=== PATIENT | male | born 1955 | race Caucasian/White ===

== ENCOUNTER 2022-02-06 06:04 | Inpatient (IN) ==
--- NOTE | 2022-01-16 12:08 | PAT Medication Instructions ---
Medication Instructions Date of Service January 16, 2022 Home Medications aspirin 81 mg capsule 81 mg PO QAM atenolol 50 mg tablet 50 mg PO QAM atorvastatin 40 mg tablet 40 mg PO QAM lorazepam 1 mg tablet 1 mg PO TID PRN ASK your prescriber and surgeon aspirin 81 mg capsule 81 mg PO QAM Take morning of surgery With a small sip of water, OTHERWISE NOTHING TO EAT OR DRINK AFTER MIDNIGHT: atenolol 50 mg tablet 50 mg PO QAM atorvastatin 40 mg tablet 40 mg PO QAM lorazepam 1 mg tablet 1 mg PO TID PRN (if needed) Take evening before surgery lorazepam 1 mg tablet 1 mg PO TID PRN (if needed) Other Notes If you have any questions please call us at [phone] or [phone] or [phone] or [phone]
--- NOTE | 2022-01-20 10:58 | Anesthesiology Consultation ---
Date of Service January 20, 2022 Assessment & Plan (1) Encounter for pre-operative examination: - Hyperkalemia: elevated potassium at 5.3 on preop labs. Will need to write note to PCP (Dr. Simone Jarrett)- pt reports preop appt scheduled 01/24. Awaiting hyperka lemia response. - COVID screening: Per assessment on 01/20: No known COVID-19 positive contacts or current COVID-19 related symptoms. Travel screen negative 2+ weeks. Patient vaccinated. Surgeon arranging preop COVID testing. Awaiting results. - ETOH use: 4 beers/day (evening) Chart Review Chart Review: Patient seen in Pre Admission Testing Teaching & Discussion Pre-Anesthesia Teaching/Discussion Notes: Instructed NPO after midnight before surgery,except medications with 15 cc of water. Medication instructions provided according to the PAT guidelines. History Surgery Operation Date: 02/06/22 07:45 Proposed Procedures p L4-S1 Decompression and Fusion, Spinal Cord Monitoring - Tripp Vargas DO Height/Weight Height: 5 ft 7 in Weight: 74 kg Allergies Allergy/AdvReac Type Severity Reaction Status Date / Time hydrocodone Allergy Mild Itchy Verified 01/20/22 10:56 Medications Home Medications Medication Instructions Recorded Confirmed Last Taken aspirin 81 mg capsule 81 mg PO QAM 01/16/22 01/16/22 Unknown atenolol 50 mg tablet 50 mg PO QAM 01/16/22 01/16/22 Unknown atorvastatin 40 mg tablet 40 mg PO QAM 01/16/22 01/16/22 Unknown lorazepam 1 mg tablet 1 mg PO TID PRN 01/16/22 01/16/22 Unknown Past Medical History Medical History (Updated 01/20/22 @ 11:14 by Sonya Reinoso) History of COVID-19 08/2021 (home test) > mild "cold" symptoms at time > resolved Hyperlipidemia Hypertension Pinched nerve LE radiation Exercise / Class Metabolic Activity II 4-5 Yardwork/Stairs/Walk up hill (one FS (no CP, no SOB)) Past Surgical History Surgical History History of arthroscopy of right shoulder History of surgery on left wrist repair of tendon Hx of arthroscopy of left knee x2 Hx of arthroscopy of right knee Hx of colonoscopy Hx of decompression of ulnar nerve right Past Anesthesia History No Hx of Anesthesia Complications and No Family Hx of Anesthesia Complications History of PONV No Hx of PONV and No Hx of Motion Sickness Social History Smoking Status: Never smoker Do You Dip or Chew Tobacco: Yes (Chew pouches - advised none DOS) Hx Alcohol Use: Yes Alcohol type: beer alcohol intake frequency: 3 or more drinks per day (4 beers/day (evening)) Hx Substance Use: No substance use type: does not use Review of Systems Patient denies chest pain, shortness of breath, dyspnea on exertion, fever, chills, cough, wheezing, palpitations. Physical Exam Vital Signs VITALS BP 149/77 P 63 TEMP 98.1 SP02 99%RA RESP 16 PHYSICAL Full cervical extension range of motion. Full TMJ range of motion. TMD 4 finger breaths Mallampati Score 2 Dentition: intact Lungs: clear throughout to auscultation Cardiac: regular rate and rhythm, no murmurs noted Spine: normal Carotid arteries: negative bruit Extremities: no edema Lab Results Anesthesia Preop Results Results Anesthesia Widget: WBC 5.90 K/uL (4.8-10.8) 01/20/22 Hgb 14.2 g/dL (14.0-18.0) 01/20/22 Hct 43.3 % (42-52) 01/20/22 Plt 302 K/uL (130-400) 01/20/22 Na 136 mmol/L (136-145) 01/20/22 K 5.3 mmol/L (3.5-5.1) H 01/20/22 Cl 102 mmol/L (98-107) 01/20/22 CO2 27 mmol/L (21-32) 01/20/22 BUN 11 mg/dl (6-23) 01/20/22 Creat 0.93 mg/dl (0.6-1.4) 01/20/22 Glucose Level 115 mg/dl (70-99(Fasting)) H 01/20/22 PT 11.4 Seconds (9.0-12.0) 01/20/22 PTT 24.3 Seconds (21.0-31.0) 01/20/22 INR 1.1 (0.9-1.1) 01/20/22 Urine Color Yellow 01/20/22 Urine Appearance Clear (Clear) 01/20/22 Urine pH 7.0 (4.5-7.5) 01/20/22 Urine Specific Leon 1.020 (1.000-1.030) 01/20/22 Urine Protein Negative (Negative) 01/20/22 Urine Glucose (UA) Negative (Negative) 01/20/22 Urine Ketones Negative (Negative) 01/20/22 Urine Blood Negative (Negative) 01/20/22 Urine Nitrite Negative (Negative) 01/20/22 Urine Bilirubin Negative (Negative) 01/20/22 Urine Urobilinogen Negative (Negative) 01/20/22 Urine Leukocyte Esterase Negative (Negative) 01/20/22 Blood Type A Positive 01/20/22 Antibody Screen NEGATIVE 01/20/22 Testing Electrocardiogram Date: 01/20/22 Findings: + SB @ (58) Chest X-Ray Date: 01/20/22 Findings: + NAD
[~2022-02-06 06:04] MED LIST: ACETAMINOPHEN 500 MG TAB PO SCH; CeleBREX 200 MG CAP PO SCH; GABAPENTIN 300 MG CAP PO SCH; LR 15ML/HR IV SCH; ceFAZolin 1000MG 1,000 MG/7.5 ML SYR IV SCH
[2022-02-06] MEDS ORDERED: MIDAZOLAM HCL 1 MG/ML 2ML VIAL ONE (07:05)
[2022-02-06] MEDS ORDERED: fentaNYL citrate 100 MCG/2 ML VIAL ONE (07:05)
[2022-02-06] MEDS ORDERED: ONDANSETRON INJ 2 MG/ML 2 ML VIAL IV PRN ×2 (07:16→11:14)
[2022-02-06] MEDS ORDERED: ePHEDrine sulfate 50 MG/ML AMP IV PRN (07:16)
[2022-02-06] MEDS ORDERED: fentaNYL citrate 100 MCG/2 ML VIAL IV PRN (07:16)
[2022-02-06] MEDS ORDERED: HYDROmorphone INJ 2 MG/ML SYR/VIAL IV PRN (07:16)
[2022-02-06] MEDS ORDERED: ATROPINE SULFATE 0.1 MG/ML 10ML SYR IV PRN (07:16)
--- NOTE | 2022-02-06 07:29 | History & Physical Bridge Note ---
Date of Service February 06, 2022 History & Physical Bridge Note I have examined the patient, reviewed the History & Physical and in the interval since the performance of the History & Physical I have noted the following changes of clinical significance: no changes noted
--- NOTE | 2022-02-06 07:29 | History & Physical Report ---
Date of Service February 06, 2022 Assessment & Plan (1) Neurogenic claudication due to lumbar spinal stenosis: Plan: L4-S1 decompression fusion History of Present Illness Chief Complaint: Back and leg pain Primary Care Provider: Simone Jarrett DO This is a 66-year-old male who presents with chronic persistent back and leg pain. After failing course of nonoperative care is here for surgical invention. Allergies Allergy/AdvReac Type Severity Reaction Status Date / Time hydrocodone Allergy Mild Itchy Verified 02/06/22 06:37 Home Medications Medication Instructions Recorded Confirmed Type aspirin 81 mg capsule 81 mg PO QAM 01/16/22 02/06/22 History atenolol 50 mg tablet 50 mg PO QAM 01/16/22 02/06/22 History atorvastatin 40 mg tablet 40 mg PO QAM 01/16/22 02/06/22 History lorazepam 1 mg tablet 1 mg PO TID PRN Anxiety 01/16/22 02/06/22 History Past Med/Surg History Medical History (Updated 02/06/22 @ 07:29 by Tripp Vargas DO) History of COVID-19 08/2021 (home test) > mild "cold" symptoms at time > resolved Hyperlipidemia Hypertension Pinched nerve LE radiation Surgical History History of arthroscopy of right shoulder History of surgery on left wrist repair of tendon Hx of arthroscopy of left knee x2 Hx of arthroscopy of right knee Hx of colonoscopy Hx of decompression of ulnar nerve right Social History Smoking Status: Never smoker Second Hand Exposure: No; Do You Dip or Chew Tobacco: Yes (Chew pouches - advised none DOS); Tobacco Cessation Education Requested by Patient: No Hx Alcohol Use: Yes Alcohol type: beer Hx Substance Use: No Preferred Language: Guyanese Communication Ability: Effective 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
[2022-02-06] MEDS ORDERED: ceFAZolin 330 MG/ML 1 GM VIAL ONE (07:38)
[2022-02-06] MEDS ORDERED: BUPIVACAINE/EPINEPHRINE 0.25% 1:200,000 30 ML VIAL ONE (07:38)
[2022-02-06] MEDS ORDERED: HYDROmorphone INJ 2 MG/ML SYR/VIAL ONE (08:07)
[2022-02-06] MEDS ORDERED: LIDOCAINE 2% MPF LOCAL 5 ML VIAL INFIL ONE (08:09)
[2022-02-06] MEDS ORDERED: DEXAMETHASONE SOD INJ 4 MG/ML VIAL ONE (08:09)
[2022-02-06] MEDS ORDERED: PHENYLEPHRINE 100MCG/ML 5ML SYR ONE (08:09)
[2022-02-06] MEDS ORDERED: GLYCOPYRROLATE 0.2 MG/ML VIAL ONE (08:09)
[2022-02-06] MEDS ORDERED: ONDANSETRON INJ 2 MG/ML 2 ML VIAL ONE (08:09)
[2022-02-06] MEDS ORDERED: ROCURONIUM BROMIDE 10 MG/ML 5 ML VIAL IV ONE (08:09)
[2022-02-06] MEDS ORDERED: LARYING-O-JET KIT (LTA) ONE (08:09)
[2022-02-06] MEDS ORDERED: NEOSTIGMINE METHYLSULFATE 1 MG/ML 10ML VIAL ONE (08:09)
[2022-02-06] MEDS ORDERED: ePHEDrine sulfate 50 MG/ML SYR ONE (08:09)
[2022-02-06] MEDS ORDERED: PROPOFOL IV EMULSION 10 MG/ML 20 ML VIAL IV ONE (08:09)
[2022-02-06] MEDS ORDERED: FLOSEAL HEMOSTATIC MATRIX 10ML TOP ONE (08:26)
--- NOTE | 2022-02-06 09:47 | Operative Report ---
Post Operative Report Pre & Post Diagnosis Operation Date: 02/06/22 07:45 Pre-Op Diagnosis: Neurogenic claudication due to lumbar spinal stenosis Post-Op Diagnosis: Neurogenic claudication due to lumbar spinal stenosis I identified the patient and participated in the time-out.: Yes Procedure Operation Date: 02/06/22 07:45 Actual Procedures Or 1 lumbar decompression bilateral medial facetectomies and foraminotomies L3- L4, L4-5 and L5-S1. #2 posterior spinal fusion L4-L5 L5-S1. #3 placement posterior instrumentation L4-L5 L5-S1. #4 interbody fusion L4-L5 L5-S1. #5 placement of Spira cage 10 x 26 mm at L4-5 and 11 x 26 mm at L5-S1. #6 placement locally harvested morselized autograft in the posterior gutters. #7 placement of I factor, V toss in the interbody space and posterior lateral gutters. Surgeon Tripp Vargas, Claims Collector Eugenia Littlejohn Estimated Blood Loss 150 Findings Consistent with Post-Op Diagnosis Specimens None Indications This is a 58-year-old male who presents above-mentioned diagnosis after failing course of nonoperative care is here for surgical invention. Description of Procedure Patient was met with identified informed consent obtained. Patient was then taken to the operative suite underwent intubation placed in a prone position the Luis Antonio table top Joaquin frame. All bony prominences well-padded eyes inspected to ensure no external pressure placed upon. This point the lumbar spine was prepped and draped in the normal sterile fashion. Sharp dissection with the assistance of Bovie cautery was performed down to and exposing the lamina and transverse processes of L4-L5 and the sacral ala bilaterally. Obvious bilateral pars defect at L5 was noted. A complete laminectomy of L5 L4 and partial laminectomy of L3 was performed. Bilateral medial facetectomies and foraminotomies addressing severe spinal stenosis. Pedicle screws then placed in L4-L5 and S1 levels bilaterally with assistance of fluoroscopy and appropriately sized jemima placed. By way of entrance foraminal approach on the right pleat discectomy of L5-S1 was performed endplates curetted to subcortical bleeding bone and 11 x 26 mm spiral cage filled with I factor tapped in position. Then proceeded to L4-L5 and again by way of a transforaminal portion right complete discectomy performed endplates curetted to subcortical any bone and a 10 x 26 mm spiral cage with I factor tapped in position. The rods then locked into final position bilaterally. The transverse processes of L4-L5 and sacral ala burred to subcortical being bone. I factor combined with V toss and locally harvested morselized autograft was placed in the posterior gutters. 15 round TAWANNA drain in serted. The incision was then closed with 1 Vicryl the fascia 2-0 Vicryl subcutaneously and 4 Monocryl for final skin closure. Steri-Strip sterile dressings placed. Patient waken taken PACU stable condition. Please note spinal cord monitoring was utilized at the procedure no changes noted. Lastly Eugenia Littlejohn was present at the entire procedure and while the patient positioning complex portions of the surgery and fascial closure. I attest to the content of the Intraoperative Record and any orders documented therein. Any exceptions are noted below.
--- NOTE | 2022-02-06 10:22 | Fluoroscopy Report ---
FL lumbar spine 2-3V CLINICAL HISTORY: L4-S1 decompression and fusion COMPARISON STUDY: None. FLUOROSCOPY TIME: 30 seconds. FINDINGS: 2 fluoroscopic spot images of the lower lumbar spine demonstrate posterior decompression an d fusion from L4 through S1 with pedicle screws and rods. Hardware is intact. Disc spacers are placed . IMPRESSION: Fluoroscopic assistance provided for L4-S1 posterior decompression and fusion. ACT 112: Negative or not required by law. Electronically signed by: Black Garland M.D. 02/06/2022 10:20 AM
--- NOTE | 2022-02-06 10:52 | Anesthesiology Progress Note ---
Date of Service February 06, 2022 Anesthesia Post Procedure Vital Signs Vital Signs: Temp Pulse Pulse Resp BP Pulse Ox O2 Del Method 02/06/22 10:45 36.4 C L 62 14 122/74 96 Nasal Cannula 02/06/22 10:35 70 13 121/79 98 Room Air 02/06/22 10:25 65 13 118/76 99 Oxymask 02/06/22 10:15 67 17 122/76 100 Oxymask 02/06/22 10:05 65 10 L 93/64 L 98 Oxymask 02/06/22 09:59 36.6 C 56 L 12 101/63 99 Oxymask 02/06/22 06:40 36.6 C 60 22 147/89 H 97 Room Air O2 Flow Rate 02/06/22 10:45 2 02/06/22 10:35 02/06/22 10:25 5 02/06/22 10:15 9 02/06/22 10:05 9 02/06/22 09:59 9 02/06/22 06:40 Pain Intensity Back: Pain Intensity: 5 Transfer of Care Handoff Completed per policy Notes Mental Status: alert / awake / arousable and participated in evaluation Patient Amnestic to Procedure: Yes Nausea / Vomiting: adequately controlled Pain: adequately controlled Airway Patency, RR, SpO2: stable & adequate BP & HR: stable & adequate Hydration State: stable & adequate Anesthetic Complications: no major complications apparent and Pt Satisfied with anesthetic care
[2022-02-06] MEDS ORDERED: ONDANSETRON 4 MG OD TAB PO PRN (11:14)
[2022-02-06] MEDS ORDERED: bisacodyL 10 MG SUPP PR PRN (11:14)
[2022-02-06] MEDS ORDERED: PROMETHAZINE HCL 12.5 MG in SODIUM CHLORIDE 0.9% 50 ML IV PRN (11:14)
[2022-02-06] MEDS ORDERED: METOCLOPRAMIDE HCL INJ 5 MG/ML 2 ML VIAL IV PRN (11:14)
[2022-02-06] MEDS ORDERED: ACETAMINOPHEN 1,000 MG/100 ML VIAL IV PRN (11:14)
[2022-02-06] MEDS ORDERED: LORazepam 0.5 MG TAB PO PRN (11:14)
[2022-02-06] MEDS ORDERED: NALOXONE HCL 0.4 MG/1 ML VIAL/CARP IV PRN (11:14)
[2022-02-06] MEDS ORDERED: ACETAMINOPHEN 500 MG TAB PO PRN (11:14)
[2022-02-06] MEDS ORDERED: LORazepam 0.5 MG in SYRINGE 0.25 ML IV PRN (11:14)
[2022-02-06] MEDS ORDERED: oxyCODONE HCL IR 5 MG TAB (IMMEDIATE RELEASE) PO PRN (11:14)
[2022-02-06] MEDS ORDERED: MAGNESIUM HYDROXIDE SUSP 30 ML UDC PO PRN (11:14)
[2022-02-06] MEDS ORDERED: diphenhydrAMINE Capsule 25 MG CAP PO PRN (11:14)
[2022-02-06] MEDS ORDERED: hydrOXYzine HCl 25 MG TAB PO PRN (11:14)
[2022-02-06] MEDS ORDERED: ALUMINUM/MAGNESIUM SUSP 30 ML UDC PO PRN (11:14)
[2022-02-06] MEDS ORDERED: SOD PHOSPHATE/SOD BIPHOSPHATE ENEMA 132 ML BTL PR PRN (11:14)
[2022-02-06] MEDS ORDERED: FAMOTIDINE 20 MG TAB PO PRN (11:14)
[2022-02-06] MEDS: HYDROmorphone INJ 1 MG/ML SYRINGE IV PRN ×2 (12:14→17:00)
[2022-02-06] MEDS: LACTATED RINGER'S 1,000 ML IV SCH ×2 (12:14→21:40)
[2022-02-06] MEDS ORDERED: LORazepam 1 MG TAB PO PRN (12:20)
--- NOTE | 2022-02-06 12:20 | Consultation ---
Date of Consultation February 06, 2022 Assessment & Plan (1) Neurogenic claudication due to lumbar spinal stenosis: (2) Hypertension: (3) Hyperlipidemia: (4) Anxiety: (5) Alcohol dependence: Plan This is a 66-year-old male who has significant past medical history of HTN, HLD, anxiety, BPH, history of colonic polyps lumbar spinal stenosis who presents for elective lumbar procedure by Dr. Vargas. Neurogenic claudication due to lumbar spinal stenosis S/P L4-S1 lumbar decompression fusion by Dr. Vargas EBL 150 mL Tolerated procedure well Pain/wound management per orthopedics Activity and therapy as directed by orthopedics Encourage incentive spirometry and wean oxygen as able Bowel regimen per ortho Preop hemoglobin 14.2 HTN Blood pressure stable continue atenolol HLD Continue atorvastatin Anxiety Continue as needed lorazepam Alcohol dependence Drinks 3-4 light beers daily, last drink 02/04 AWSS scale and as needed oral lorazepam Nicotine dependence Patient chews tobacco pouches Declines nicotine patch DVT ppx: SCDS/TEDs Dispo: Per Primary PCP: Simone Jarrett of [facility] FULL CODE Pt was seen and examined in collaboration with Dr. Rodriguez, please see addendum Thank you for this consultation. We will follow the patient with you during their hospital stay. You can reach a member of the [facility] Hospitalist Team 12/02 via hospitalist role on tiger text. Supervising Physician Co-Signing Physician Notes Patient was seen and examined independently at bedside. at bedside. Chart reviewed. Case discussed with Idania Lester PA-C and agree with the documentation above in regards to HPI, exam, assessment and plan. In summary, this is a 66 year old male with lumbar stenosis with neurogenic claudication s/p surgery by Dr Vargas today. Currently denies any issues, denies any pain after pain meds. No N/V. Sitting comfortably in bed, AAO, chest clear, heart sounds normal, abd benign, CASI drain with serosanguineous drainage, LE with SCDs, gramajo with deja urine. Diet, activities, DVT ppx and pain management per primary t eam. Other chronic medical conditions stable. Rest as per note above. History of Present Illness Requesting Physician: Dr. Vargas Reason for Consultation: Postop medical management Attending Physician: Tripp Vargas, History of Present Illness This is a 66-year-old male who has significant past medical history of HTN, HLD, anxiety, BPH, history of colonic polyps lumbar spinal stenosis who presents for elective lumbar procedure by Dr. Vargas. He underwent L4-S1 lumbar decompression fusion. He tolerated procedure well. is at bedside. He does complain of mild incisional low back pain but denies any radicular symptoms including pain, numbness or tingling. He does have a Gramajo catheter in place. He denies any fever, chills, sweats, lightheadedness, di zziness, chest pain, shortness breath, cough, nausea, vomiting, abdominal pain. He overall feels he is gaining an appetite. Current pain is a 5-6 out of 10. Pt PCP is Simone Jarrett of [facility]. His outpt records were reviewed. He has been compliant with his medications. He has history of hypertension controlled on atenolol. He has history of hyperlipidemia controlled on atorvastatin. He does chew nicotine pouches. He also drinks 3-4 light beers a day. His last drink was Sunday. Allergies Allergy/AdvReac Type Severity Reaction Status Date / Time hydrocodone Allergy Mild Itchy Verified 02/06/22 06:37 Home Medications Medication Instructions Recorded Confirmed Type aspirin 81 mg capsule 81 mg PO QAM 01/16/22 02/06/22 History atenolol 50 mg tablet 50 mg PO QAM 01/16/22 02/06/22 History atorvastatin 40 mg tablet 40 mg PO QAM 01/16/22 02/06/22 History lorazepam 1 mg tablet 1 mg PO TID PRN Anxiety 01/16/22 02/06/22 History Patient History Medical History (Updated 02/06/22 @ 12:16 by Idania Lester PA-C) Anxiety History of COVID-19 08/2021 (home test) > mild "cold" symptoms at time > resolved Hyperlipidemia Hypertension Pinched nerve LE radiation Surgical History History of arthroscopy of right shoulder History of surgery on left wrist repair of tendon Hx of arthroscopy of left knee x2 Hx of arthroscopy of right knee Hx of colonoscopy Hx of decompression of ulnar nerve right Family History Brother , 50s Myocardial infarction Brother Prostate cancer Social History (Updated 02/06/22 @ 12:13 by Idania Lester PA-C) Smoking Status: Never smoker Second Hand Exposure: No; Do You Dip or Chew Tobacco: Yes (Chew pouches - advised none DOS); Tobacco Cessation Education Requested by Patient: No Hx Alcohol Use: Yes Alcohol type: beer Alcohol Intake Frequency Comment: 3-4 light beers a day Hx Substance Use: No Preferred Language: Indonesian Communication Ability: Effective 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 Beliefs That Will Affect Care: None Current Living Situation: Spouse Other Information That Helps Us Care for You: No Feels Safe at Home: Yes Safety Concerns: Feels Safe At This Time Assistive Devices: Glasses Review of Systems Review of Systems: All systems reviewed & are unremarkable except as noted in HPI & below Physical Exam Physical Exam: Constitutional: WD/WN, vitals as above, NAD, sitting up in bed, pleasant, conversing easily Head: Normocephalic, Atraumatic Eyes: PERRL, conjunctivae normal, anicteric sclerae ENMT: external ear and nose normal, oropharynx normal Neck: trachea midline, no thyromegaly normal visual inspection Respiratory: normal respiratory effort, lungs clear to auscultation, no wheeze, rales, rhonchi. Normal insp/exp effort, no accessory muscle use Cardiovascular: RRR, no murmur, no edema Vessels: no JVD or carotid bruit Chest: normal inspection of chest Abdomen: normal bowel sounds, soft, nontender, no hepatosplenomegaly Musculoskeletal: no cyanosis or clubbing, arom x 4, lumbar dressing CDI, casi drain with serosang drainage Skin: no rashes, warm and dry normal turgor Neurologic: PERRL, EOMI, accommodation nl, no face palsy, no dysarthria CN's II-XI intact bilaterally and moves all extremities Psychiatric: A+Ox3, euthymic affect Lymphatic: no cervical or axillary lymphadenopathy : +gramajo cath draining yellow urine Results & Data ([facility]) Vital Signs (Past 12 Hours) Vital Signs Temp Pulse Pulse Resp BP Pulse Ox O2 Del Method 02/06/22 11:37 36.3 C L 67 14 129/81 100 Nasal Cannula 02/06/22 11:34 Nasal Cannula 02/06/22 11:22 36.3 C L 74 16 118/77 99 Nasal Cannula 02/06/22 10:55 62 16 124/73 97 Nasal Cannula 02/06/22 10:45 36.4 C L 62 14 122/74 96 Nasal Cannula 02/06/22 10:35 70 13 121/79 98 Room Air 02/06/22 10:25 65 13 118/76 99 Oxymask 02/06/22 10:15 67 17 122/76 100 Oxymask 02/06/22 10:05 65 10 L 93/64 L 98 Oxymask 02/06/22 09:59 36.6 C 56 L 12 101/63 99 Oxymask 02/06/22 06:40 36.6 C 60 22 147/89 H 97 Room Air O2 Flow Rate 02/06/22 11:37 3 02/06/22 11:34 2 02/06/22 11:22 2 02/06/22 10:55 2 02/06/22 10:45 2 02/06/22 10:35 02/06/22 10:25 5 02/06/22 10:15 9 02/06/22 10:05 9 02/06/22 09:59 9 02/06/22 06:40 Laboratory Results Preop lab work on 01/20/2022 H&H 14.2 and 43.3, WBC 5.90, platelet 302 Sodium 136, K5.3, chloride 102, CO2 27, BUN 11, creatinine 0.93, glucose 115 Urinalysis negative SARS-CoV-2 negative Repeat potassium on 02/06/2022 was 4.1 Diagnostic Findings Lumbar Spine X-Ray 02/06/22 07:45 FL lumbar spine 2-3V CLINICAL HISTORY: L4-S1 decompression and fusion COMPARISON STUDY: None. FLUOROSCOPY TIME: 30 seconds. FINDINGS: 2 fluoroscopic spot images of the lower lumbar spine demonstrate posterior decompression and fusion from L4 through S1 with pedicle screws and rods. Hardware is intact. Disc spacers are placed. IMPRESSION: Fluoroscopic assistance provided for L4-S1 posterior decompression and fusion. ACT 112: Negative or not required by law. Electronically signed by: Black Garland M.D. 02/06/2022 10:20 AM 01/20/2022 no acute cardiopulmonary findings Medications Administered Current Inpatient Medications Acetaminophen (Acetaminophen 500 Mg Tab) 1,000 mg PO PREOP KOFI Stop: 02/06/22 18:00 Last Admin: 02/06/22 07:00 Dose: 1,000 mg Acetaminophen (Acetaminophen 500 Mg Tab) 1,000 mg PO Q8H PRN PRN Reason: MILD Pain Scale 1,2,3 & Pre PT Stop: 03/08/22 11:13 Al Hydrox/Mg Hydrox/Simethicone (Aluminum/Magnesium Susp 30 Ml Udc) 30 ml PO Q6H PRN PRN Reason: Dyspepsia Stop: 03/08/22 11:13 Atenolol (Atenolol 50 Mg Tablet) 50 mg PO QAM KOFI Stop: 03/09/22 08:59 Atorvastatin Calcium (Atorvastatin 40 Mg Tab) 40 mg PO QAM KOFI Stop: 03/09/22 08:59 Atropine Sulfate (Atropine Sulfate 0.1 Mg/Ml 10ml Syr) 0.5 mg IV Q1M PRN PRN Reason: PACU Use-HR<40 &/or Bradycardi Stop: 02/06/22 15:16 Bisacodyl (Bisacodyl 10 Mg Supp) 10 mg AR DAILY PRN PRN Reason: Constipation Stop: 03/08/22 11:13 Celecoxib (Celebrex 200 Mg Cap) 200 mg PO PREOP KOFI Stop: 02/06/22 18:00 Last Admin: 02/06/22 07:01 Dose: 200 mg Diphenhydramine HCl (Diphenhydramine Capsule 25 Mg Cap) 25 mg PO Q6H PRN PRN Reason: Allergic Rhinitis/Insomnia Stop: 03/08/22 11:13 Ephedrine Sulfate (Ephedrine Sulfate 50 Mg/Ml Amp) 5 mg IV Q5M PRN PRN Reason: PACU Use Only-SBP<90 mmHg Stop: 02/06/22 15:16 Famotidine (Famotidine 20 Mg Tab) 20 mg PO Q12H PRN PRN Reason: Dyspepsia Stop: 03/08/22 11:13 Fentanyl Citrate (Fentanyl Citrate 100 Mcg/2 Ml Vial) 50 mcg IV Q5M PRN PRN Reason: PACU Use Only-Pain Stop: 02/06/22 15:16 Last Admin: 02/06/22 10:34 Dose: 50 mcg Gabapentin (Gabapentin 300 Mg Cap) 300 mg PO PREOP KOFI Stop: 02/06/22 18:00 Last Admin: 02/06/22 07:01 Dose: 300 mg Hydromorphone HCl (Hydromorphone Inj 2 Mg/Ml Syr/Vial) 0.5 mg IV Q5M PRN PRN Reason: PACU Use Only-Pain Stop: 02/06/22 15:16 Hydromorphone HCl (Hydromorphone Inj 0.5 Mg/0.5 Ml Syr) 0.5 mg IV Q3H PRN PRN Reason: MODERATE Pain (Scale 4,5,6) & Pre PT Stop: 02/20/22 11:13 Hydromorphone HCl (Hydromorphone Inj 1 Mg/Ml Syringe) 1 mg IV Q3H PRN PRN Reason: SEVERE Pain (Scale 7,8,9,10) Stop: 02/20/22 11:13 Last Admin: 02/06/22 12:14 Dose: 1 mg Hydroxyzine HCl (Hydroxyzine Hcl 25 Mg Tab) 25 mg PO Q8H PRN PRN Reason: Anxiety Stop: 03/08/22 11:13 Lactated Ringer's (Lr) 1,000 mls @ 15 mls/hr IV .Q24H KOFI Stop: 02/07/22 05:59 Last Infusion: 02/06/22 07:43 Dose: Infused Cefazolin Sodium (Ancef 1000mg) 1,000 mg in 7.5 mls @ 2.5 mls/min IV PREOP KOFI; Protocol Stop: 02/06/22 18:00 Last Admin: 02/06/22 07:43 Dose: 2.5 mls/min Cefazolin Sodium (Ancef 2000mg) 2,000 mg in 15 mls @ 3.75 mls/min IV Q8H KOFI; Protocol Stop: 02/07/22 00:03 Lactated Ringer's (Lr) 1,000 mls @ 100 mls/hr IV .Q10H KOFI Stop: 03/08/22 11:13 Last Admin: 02/06/22 12:14 Dose: 100 mls/hr Promethazine HCl 12.5 mg/ (Sodium Chloride) 50.5 mls @ 202 mls/hr IV Q6H PRN PRN Reason: Nausea &/or Vomiting Stop: 03/08/22 11:13 Acetaminophen (Ofirmev) 1,000 mg in 100 mls @ 400 mls/hr IV Q8H PRN PRN Reason: Pain Rating 1-3 & Pre PT Stop: 02/07/22 11:15 Lorazepam 0.5 mg/ Syringe 0.5 mls @ 2 mls/min IV Q8H PRN PRN Reason: Sedation/Anxiety Stop: 03/08/22 11:13 Dexamethasone 6 mg/ Syringe 1.5 mls @ 1 mls/min IV DAILY KOFI Stop: 02/09/22 09:02 Influenza Virus Vaccine Quadrival (Do Not Administer Flu Vaccine) 1 each N/A PRN PRN PRN Reason: Notification Stop: 03/08/22 11:13 Lorazepam (Lorazepam 0.5 Mg Tab) 0.5 mg PO Q8H PRN PRN Reason: Sedation/Anxiety Stop: 03/08/22 11:13 Magnesium Hydroxide (Magnesium Hydroxide Susp 30 Ml Udc) 30 ml PO Q24H PRN PRN Reason: Constipation Stop: 03/08/22 11:13 Metoclopramide HCl (Metoclopramide Hcl Inj 5 Mg/Ml 2 Ml Vial) 10 mg IV Q6H PRN PRN Reason: Nausea &/or Vomiting Stop: 03/08/22 11:13 Naloxone HCl (Naloxone Hcl 0.4 Mg/1 Ml Vial/Carp) 0.1 mg IV Q5M PRN PRN Reason: Oversedation/Resp depression Stop: 03/08/22 11:13 Non-Formulary Medication (Aspirin) 81 mg PO QAM KOFI Stop: 03/09/22 08:59 Ondansetron HCl (Ondansetron Inj 2 Mg/Ml 2 Ml Vial) 4 mg IV ONCE PRN PRN Reason: PACU Use Only-Nausea/Vomiting Stop: 02/06/22 15:17 Ondansetron HCl (Ondansetron Inj 2 Mg/Ml 2 Ml Vial) 4 mg IV Q6H PRN PRN Reason: Nausea &/or Vomiting Stop: 03/08/22 11:13 Ondansetron HCl (Ondansetron 4 Mg Od Tab) 4 mg PO Q6H PRN PRN Reason: Nausea Stop: 03/08/22 11:13 Oxycodone HCl (Oxycodone Hcl Ir 5 Mg Tab (Immediate Release)) 5 - 10 mg PO Q4H PRN PRN Reason: Pain & Pre PT Stop: 02/20/22 11:13 Pneumococcal Polyvalent Vaccine (Do Not Administer Pneumococcal Vaccine) 1 each N/A PRN PRN PRN Reason: Notification Stop: 03/08/22 11:13 Polyethylene Glycol (Polyethylene (Miralax) 17 Gm Pack) 17 gm PO Q6 KOFI Stop: 03/09/22 05:59 Senna/Docusate Sodium (Docusate Sodium/Senna 50/8.6mg Tab) 2 tab PO HS KOFI Stop: 03/08/22 20:59 Sodium Biphosphate/Sodium Phosphate (Sod Phosphate/Sod Biphosphate Enema 132 Ml Btl) 132 ml AR ONE PRN PRN Reason: Constipation Stop: 03/08/22 11:13 Tramadol HCl (Tramadol Hcl 50 Mg Tablet) 50 - 100 mg PO Q4H PRN PRN Reason: Moderate-Severe pain & Pre PT Stop: 03/08/22 11:13 ECG Rate (beats per minute): 58 Rhythm: sinus bradycardia
[2022-02-06] MEDS ORDERED: DO NOT ADMINISTER PNEUMOCOCCAL VACCINE PRN (13:07)
[2022-02-06] MEDS ORDERED: DO NOT ADMINISTER FLU VACCINE PRN (13:07)
[2022-02-06] MEDS: ceFAZolin 2000MG 2,000 MG/15 ML SYR IV SCH (15:59)
[2022-02-06] MEDS: DOCUSATE SODIUM/SENNA 50/8.6MG TAB PO SCH (20:26)
[2022-02-07] MEDS: ceFAZolin 2000MG 2,000 MG/15 ML SYR IV SCH (00:10)
[2022-02-07] MEDS: HYDROmorphone INJ 0.5 MG/0.5 ML SYR IV PRN ×2 (00:20→05:53)
[2022-02-07] MEDS: POLYETHYLENE (MIRALAX) 17 GM PACK PO SCH ×4 (05:54→23:37)
--- NOTE | 2022-02-07 08:40 | Orthopedic Progress Note ---
Date of Service February 07, 2022 Assessment & Plan (1) Neurogenic claudication due to lumbar spinal stenosis: Plan: At this time initiate physical therapy monitor his TAWANNA operatively discharge over the next few days. We will discontinue oxycodone and begin Tylenol with codeine Admission and Anticipated Discharge Date Admission Date: February 06, 2022 Subjective Back pain controlled leg pain improved Physical Exam Physical Exam: Patient is in the chair at the bedside. He appears comfortable. Discussed again testing. Results & Data ([facility]) Vital Signs (Past 12 Hours) Vital Signs Temp Pulse Resp BP Pulse Ox O2 Del Method 02/07/22 07:43 36.7 C 69 16 136/72 97 Room Air 02/07/22 04:29 36.6 C 66 18 130/74 95 Room Air 02/06/22 23:32 36.5 C 70 16 153/89 H 96 Room Air
[2022-02-07 08:56] LABS: Basophils # (auto) 0.02 K/uL (0-0.2); Basophils % (auto) 0.2 %; Hematocrit (blood only) 34.4 % (40.1-51.0); Hemoglobin 11.2 g/dl (14.0-18.0); Immature Granulocytes # (auto) 0.05 K/uL (0.00-0.02); Immature Granulocytes % (auto) 0.4 %; Lymphocytes # (auto) 1.45 K/uL (1.2-3.4); Lymphocytes % (auto) 12.9 %; Mean Corpuscular Hemoglobin 29.9 pg (25.0-34.0); Mean Corpuscular Hgb Conc 32.6 g/dL (32.0-36.0); Mean Corpuscular Volume 91.7 fL (80.0-100.0); Mean Platelet Volume 11.3 fL (9.4-12.4); Monocytes # (auto) 0.99 K/uL (0.24-0.82); Monocytes % (auto) 8.8 %; Neutrophils # (auto) 8.71 K/uL (1.4-6.5); Neutrophils % (auto) 77.7 %; Platelet Count 240 K/uL (130-400); RDW Coefficient of Variation 12.8 % (11.5-14.5); RDW Standard Deviation 42.7 fL (36.4-46.3); Red Blood Count 3.75 M/uL (4.63-6.08); White Blood Count 11.22 K/ul (4.8-10.8)
[2022-02-07] MEDS: ATENOLOL 50 MG TABLET PO SCH (09:11)
[2022-02-07] MEDS: dexAMETHasone 6 MG in SYRINGE 0 ML IV SCH (09:12)
[2022-02-07] MEDS: ATORVASTATIN 40 MG TAB PO SCH (09:12)
[2022-02-07] MEDS: ASPIRIN 81 MG ECTAB PO SCH (09:12)
[2022-02-07 09:19] LABS: BUN Creatinine Ratio 11.7 (10-20); Calcium 8.1 mg/dl (8.5-10.1); Creatinine Clr Calc Pharmacy 85.8 ml/min; Est GFR (African American) 108.1 ml/min; Est GFR (Non-African American) 93.2 ml/min; Potassium 3.7 mmol/L (3.5-5.1)
[2022-02-07] MEDS: traMADol HCL 50 MG TABLET PO PRN ×3 (09:20→22:03)
--- NOTE | 2022-02-07 17:51 | Hospitalist Progress Note ---
Date of Service February 07, 2022 Assessment & Plan (1) Neurogenic claudication due to lumbar spinal stenosis: (2) Hypertension: (3) Hyperlipidemia: (4) Anxiety: (5) Alcohol dependence: Plan This is a 66-year-old male who has significant past medical history of HTN, HLD, anxiety, BPH, history of colonic polyps lumbar spinal stenosis who presents for elective lumbar procedure by Dr. Vargas. Neurogenic claudication due to lumbar spinal stenosis S/P L4-S1 lumbar decompression fusion 02/06 further management per primary service (pain control, DVT ppx) HTN Blood pressure stable continue atenolol HLD Continue atorvastatin Anxiety Continue as needed lorazepam Alcohol dependence Drinks 3-4 light beers daily, last drink 02/04 AWSS scale and as needed oral lorazepam Nicotine dependence Patient chews tobacco pouches Declines nicotine patch DVT ppx: per primary Dispo: Per Primary Admission and Anticipated Discharge Date Admission Date: February 06, 2022 Subjective Patient feels well. Pain is controlled. No chest pain, shortness of breath or dizziness Physical Exam Physical Exam: Sitting in chair, no acute distress, non toxic Respiratory: Breathing comfortably on room air, no wheezing/rhonchi/rales Cardiovascular: Regular rate and rhythm, no murmurs/rubs Gastrointestinal (Abdomen): Soft, non tender, non distended Musculoskeletal: No edema Neurologic: awake, alert, spontaneously moving extremities Results & Data Results & Data ([facility]) Vital Signs (Past 12 Hours) Vital Signs Temp Pulse Resp BP Pulse Ox O2 Del Method 02/07/22 14:49 36.4 C L 74 16 143/83 H 95 Room Air 02/07/22 11:07 36.4 C L 56 L 16 120/78 94 Room Air 02/07/22 07:43 36.7 C 69 16 136/72 97 Room Air Laboratory Results Short CBC 02/07/22 Range/Units 08:11 WBC 11.22 H (4.8-10.8) K/ul Hgb 11.2 L (14.0-18.0) g/dl Hct 34.4 L (40.1-51.0) % Plt Count 240 (130-400) K/uL BMP 02/07/22 08:11 Sodium 133 L Potassium 3.7 Chloride 98 Carbon Dioxide 28 BUN 9 Creatinine 0.77 Glucose 118 H Calcium 8.1 L Medications Administered Current Inpatient Medications Acetaminophen (Acetaminophen 500 Mg Tab) 1,000 mg PO Q8H PRN PRN Reason: MILD Pain Scale 1,2,3 & Pre PT Stop: 03/08/22 11:13 Acetaminophen/Codeine Phosphate (Acetaminophen W/Codeine #3 1 Tab) 1 tab PO Q4H PRN PRN Reason: Pain Stop: 03/09/22 08:39 Al Hydrox/Mg Hydrox/Simethicone (Aluminum/Magnesium Susp 30 Ml Udc) 30 ml PO Q6H PRN PRN Reason: Dyspepsia Stop: 03/08/22 11:13 Aspirin (Aspirin 81 Mg Ectab) 81 mg PO [facility]; Protocol Stop: 03/09/22 08:59 Last Admin: 02/07/22 09:12 Dose: 81 mg Atenolol (Atenolol 50 Mg Tablet) 50 mg PO [facility] Stop: 03/09/22 08:59 Last Admin: 02/07/22 09:11 Dose: 50 mg Atorvastatin Calcium (Atorvastatin 40 Mg Tab) 40 mg PO [facility] Stop: 03/09/22 08:59 Last Admin: 02/07/22 09:12 Dose: 40 mg Bisacodyl (Bisacodyl 10 Mg Supp) 10 mg [place] DAILY PRN PRN Reason: Constipation Stop: 03/08/22 11:13 Diphenhydramine HCl (Diphenhydramine Capsule 25 Mg Cap) 25 mg PO Q6H PRN PRN Reason: Allergic Rhinitis/Insomnia Stop: 03/08/22 11:13 Famotidine (Famotidine 20 Mg Tab) 20 mg PO Q12H PRN PRN Reason: Dyspepsia Stop: 03/08/22 11:13 Hydromorphone HCl (Hydromorphone Inj 0.5 Mg/0.5 Ml Syr) 0.5 mg IV Q3H PRN PRN Reason: MODERATE Pain (Scale 4,5,6) & Pre PT Stop: 02/20/22 11:13 Last Admin: 02/07/22 05:53 Dose: 0.5 mg Hydromorphone HCl (Hydromorphone Inj 1 Mg/Ml Syringe) 1 mg IV Q3H PRN PRN Reason: SEVERE Pain (Scale 7,8,9,10) Stop: 02/20/22 11:13 Last Admin: 02/06/22 17:00 Dose: 1 mg Hydroxyzine HCl (Hydroxyzine Hcl 25 Mg Tab) 25 mg PO Q8H PRN PRN Reason: Anxiety Stop: 03/08/22 11:13 Promethazine HCl 12.5 mg/ (Sodium Chloride) 50.5 mls @ 202 mls/hr IV Q6H PRN PRN Reason: Nausea &/or Vomiting Stop: 03/08/22 11:13 Lorazepam 0.5 mg/ Syringe 0.5 mls @ 2 mls/min IV Q8H PRN PRN Reason: Sedation/Anxiety Stop: 03/08/22 11:13 Dexamethasone 6 mg/ Syringe 1.5 mls @ 1 mls/min IV DAILY KOFI Stop: 02/09/22 09:02 Last Admin: 02/07/22 09:12 Dose: 1 mls/min Influenza Virus Vaccine Quadrival (Do Not Administer Flu Vaccine) 1 each N/A PRN PRN PRN Reason: Notification Stop: 03/08/22 13:06 Lorazepam (Lorazepam 0.5 Mg Tab) 0.5 mg PO Q8H PRN PRN Reason: Sedation/Anxiety Stop: 03/08/22 11:13 Lorazepam (Lorazepam 1 Mg Tab) 1 mg PO ONE PRN; Protocol PRN Reason: EtoH Withdrawal AWSS 6-10 Magnesium Hydroxide (Magnesium Hydroxide Susp 30 Ml Udc) 30 ml PO Q24H PRN PRN Reason: Constipation Stop: 03/08/22 11:13 Metoclopramide HCl (Metoclopramide Hcl Inj 5 Mg/Ml 2 Ml Vial) 10 mg IV Q6H PRN PRN Reason: Nausea &/or Vomiting Stop: 03/08/22 11:13 Naloxone HCl (Naloxone Hcl 0.4 Mg/1 Ml Vial/Carp) 0.1 mg IV Q5M PRN PRN Reason: Oversedation/Resp depression Stop: 03/08/22 11:13 Ondansetron HCl (Ondansetron Inj 2 Mg/Ml 2 Ml Vial) 4 mg IV Q6H PRN PRN Reason: Nausea &/or Vomiting Stop: 03/08/22 11:13 Ondansetron HCl (Ondansetron 4 Mg Od Tab) 4 mg PO Q6H PRN PRN Reason: Nausea Stop: 03/08/22 11:13 Pneumococcal Polyvalent Vaccine (Do Not Administer Pneumococcal Vaccine) 1 each N/A PRN PRN PRN Reason: Notification Stop: 03/08/22 13:06 Polyethylene Glycol (Polyethylene (Miralax) 17 Gm Pack) 17 gm PO Q6 [facility] Stop: 03/09/22 05:59 Last Admin: 02/07/22 17:44 Dose: 17 gm Senna/Docusate Sodium (Docusate Sodium/Senna 50/8.6mg Tab) 2 tab PO HS KOFI Stop: 03/08/22 20:59 Last Admin: 02/06/22 20:26 Dose: 2 tab Sodium Biphosphate/Sodium Phosphate (Sod Phosphate/Sod Biphosphate Enema 132 Ml Btl) 132 ml [place] ONE PRN PRN Reason: Constipation Stop: 03/08/22 11:13 Tramadol HCl (Tramadol Hcl 50 Mg Tablet) 50 - 100 mg PO Q4H PRN PRN Reason: Moderate-Severe pain & Pre PT Stop: 03/08/22 11:13 Last Admin: 02/07/22 13:45 Dose: 100 mg
[2022-02-07] MEDS: DOCUSATE SODIUM/SENNA 50/8.6MG TAB PO SCH (20:00)
[2022-02-08] MEDS: ACETAMINOPHEN W/CODEINE #3 1 TAB PO PRN ×2 (05:24→22:02)
[2022-02-08] MEDS: POLYETHYLENE (MIRALAX) 17 GM PACK PO SCH ×4 (05:25→23:24)
[2022-02-08] MEDS: ASPIRIN 81 MG ECTAB PO SCH (07:39)
[2022-02-08] MEDS: ATORVASTATIN 40 MG TAB PO SCH (07:39)
[2022-02-08] MEDS: ATENOLOL 50 MG TABLET PO SCH (07:39)
[2022-02-08] MEDS: dexAMETHasone 6 MG in SYRINGE 0 ML IV SCH (07:39)
--- NOTE | 2022-02-08 11:49 | Orthopedic Progress Note ---
Date of Service February 08, 2022 Assessment & Plan (1) Neurogenic claudication due to lumbar spinal stenosis: Plan: This time we will continue physical therapy monitor his TAWANNA operatively discharge home tomorrow. Admission and Anticipated Discharge Date Admission Date: February 06, 2022 Subjective Patient's back pain is controlled leg pain markedly improved Physical Exam Physical Exam: Patient is in the chair at the bedside. Has good strength testing. Appears comfortable. Results & Data ([facility]) Vital Signs (Past 12 Hours) Vital Signs Temp Pulse Resp BP Pulse Ox O2 Del Method 02/08/22 08:35 Room Air 02/08/22 07:18 36.4 C L 58 L 16 158/85 H 98 Room Air
--- NOTE | 2022-02-08 13:55 | Hospitalist Progress Note ---
Date of Service February 08, 2022 Assessment & Plan (1) Neurogenic claudication due to lumbar spinal stenosis: (2) Hypertension: (3) Hyperlipidemia: (4) Anxiety: (5) Alcohol dependence: Plan This is a 66-year-old male who has significant past medical history of HTN, HLD, anxiety, BPH, history of colonic polyps lumbar spinal stenosis who presents for elective lumbar procedure by Dr. Vargas. Neurogenic claudication due to lumbar spinal stenosis- S/P L4-S1 lumbar decompression and fusion 02/06; further management including DVT ppx, pain management per primary team HTN- Blood pressure stable, continue atenolol HLD- Continue atorvastatin Anxiety- prn orazepam Alcohol use- no withdrawal S/S. Drinks 3-4 light beers daily, last drink 02/04 Nicotine dependence- chews tobacco pouches, Declines nicotine patch DVT ppx: per primary Dispo: Per Primary. Stable from hospitalist perspective Admission and Anticipated Discharge Date Admission Date: February 06, 2022 Subjective He feels good. Pain is controlled. Ambulating round the partida independently. No N/V/abd pain. No CP, SOB. Normal appetite. Voiding without issues. No BM yet but passing gas. States it took him a week with prior surgery before he actually had a BM. Physical Exam Physical Exam: General: Ambulating independently around the partida, not in distress, on room air HEENT: EOMI, ALEC, MMM Chest: Clear breath sounds bilaterally, no wheezes or crackles CVS: Regular rate and rhythm, normal heart sounds, no murmur Abdomen: Soft, non tender, not distended, normal bowel sounds Neuro: Awake, alert, oriented, conversing well, non focal Extremities: No cyanosis, clubbing or edema Back- incision site clean,dry intact, TAWANNA drain with slight serosanguineous output Results & Data Results & Data ([facility]) Vital Signs (Past 12 Hours) Vital Signs Temp Pulse Resp BP Pulse Ox O2 Del Method 02/08/22 08:35 Room Air 02/08/22 07:18 36.4 C L 58 L 16 158/85 H 98 Room Air Medications Administered Current Inpatient Medications Acetaminophen (Acetaminophen 500 Mg Tab) 1,000 mg PO Q8H PRN PRN Reason: MILD Pain Scale 1,2,3 & Pre PT Stop: 03/08/22 11:13 Acetaminophen/Codeine Phosphate (Acetaminophen W/Codeine #3 1 Tab) 1 tab PO Q4H PRN PRN Reason: Pain Stop: 03/09/22 08:39 Last Admin: 02/08/22 05:24 Dose: 1 tab Al Hydrox/Mg Hydrox/Simethicone (Aluminum/Magnesium Susp 30 Ml Udc) 30 ml PO Q6H PRN PRN Reason: Dyspepsia Stop: 03/08/22 11:13 Aspirin (Aspirin 81 Mg Ectab) [address] [facility]; Protocol Stop: 03/09/22 08:59 Last Admin: 02/08/22 07:39 Dose: 81 mg Atenolol (Atenolol 50 Mg Tablet) [address] [facility] Stop: 03/09/22 08:59 Last Admin: 02/08/22 07:39 Dose: 50 mg Atorvastatin Calcium (Atorvastatin 40 Mg Tab) [address] [facility] Stop: 03/09/22 08:59 Last Admin: 02/08/22 07:39 Dose: 40 mg Bisacodyl (Bisacodyl 10 Mg Supp) 10 mg DC DAILY PRN PRN Reason: Constipation Stop: 03/08/22 11:13 Diphenhydramine HCl (Diphenhydramine Capsule 25 Mg Cap) 25 mg PO Q6H PRN PRN Reason: Allergic Rhinitis/Insomnia Stop: 03/08/22 11:13 Famotidine (Famotidine 20 Mg Tab) 20 mg PO Q12H PRN PRN Reason: Dyspepsia Stop: 03/08/22 11:13 Hydromorphone HCl (Hydromorphone Inj 0.5 Mg/0.5 Ml Syr) 0.5 mg IV Q3H PRN PRN Reason: MODERATE Pain (Scale 4,5,6) & Pre PT Stop: 02/20/22 11:13 Last Admin: 02/07/22 05:53 Dose: 0.5 mg Hydromorphone HCl (Hydromorphone Inj 1 Mg/Ml Syringe) 1 mg IV Q3H PRN PRN Reason: SEVERE Pain (Scale 7,8,9,10) Stop: 02/20/22 11:13 Last Admin: 02/06/22 17:00 Dose: 1 mg Hydroxyzine HCl (Hydroxyzine Hcl 25 Mg Tab) 25 mg PO Q8H PRN PRN Reason: Anxiety Stop: 03/08/22 11:13 Promethazine HCl 12.5 mg/ (Sodium Chloride) 50.5 mls @ 202 mls/hr IV Q6H PRN PRN Reason: Nausea &/or Vomiting Stop: 03/08/22 11:13 Lorazepam 0.5 mg/ Syringe 0.5 mls @ 2 mls/min IV Q8H PRN PRN Reason: Sedation/Anxiety Stop: 03/08/22 11:13 Dexamethasone 6 mg/ Syringe 1.5 mls @ 1 mls/min IV DAILY KOFI Stop: 02/09/22 09:02 Last Admin: 02/08/22 07:39 Dose: 1 mls/min Influenza Virus Vaccine Quadrival (Do Not Administer Flu Vaccine) 1 each N/A PRN PRN PRN Reason: Notification Stop: 03/08/22 13:06 Lorazepam (Lorazepam 0.5 Mg Tab) 0.5 mg PO Q8H PRN PRN Reason: Sedation/Anxiety Stop: 03/08/22 11:13 Lorazepam (Lorazepam 1 Mg Tab) 1 mg PO ONE PRN; Protocol PRN Reason: EtoH Withdrawal AWSS 6-10 Magnesium Hydroxide (Magnesium Hydroxide Susp 30 Ml Udc) 30 ml PO Q24H PRN PRN Reason: Constipation Stop: 03/08/22 11:13 Metoclopramide HCl (Metoclopramide Hcl Inj 5 Mg/Ml 2 Ml Vial) 10 mg IV Q6H PRN PRN Reason: Nausea &/or Vomiting Stop: 03/08/22 11:13 Naloxone HCl (Naloxone Hcl 0.4 Mg/1 Ml Vial/Carp) 0.1 mg IV Q5M PRN PRN Reason: Oversedation/Resp depression Stop: 03/08/22 11:13 Ondansetron HCl (Ondansetron Inj 2 Mg/Ml 2 Ml Vial) 4 mg IV Q6H PRN PRN Reason: Nausea &/or Vomiting Stop: 03/08/22 11:13 Ondansetron HCl (Ondansetron 4 Mg Od Tab) 4 mg PO Q6H PRN PRN Reason: Nausea Stop: 03/08/22 11:13 Pneumococcal Polyvalent Vaccine (Do Not Administer Pneumococcal Vaccine) 1 each N/A PRN PRN PRN Reason: Notification Stop: 03/08/22 13:06 Polyethylene Glycol (Polyethylene (Miralax) 17 Gm Pack) 17 gm PO Q6 [facility] Stop: 03/09/22 05:59 Last Admin: 02/08/22 11:42 Dose: Not Given Senna/Docusate Sodium (Docusate Sodium/Senna 50/8.6mg Tab) 2 tab PO HS KOFI Stop: 03/08/22 20:59 Last Admin: 02/07/22 20:00 Dose: 2 tab Sodium Biphosphate/Sodium Phosphate (Sod Phosphate/Sod Biphosphate Enema 132 Ml Btl) 132 ml DC ONE PRN PRN Reason: Constipation Stop: 03/08/22 11:13 Tramadol HCl (Tramadol Hcl 50 Mg Tablet) 50 - 100 mg PO Q4H PRN PRN Reason: Moderate-Severe pain & Pre PT Stop: 03/08/22 11:13 Last Admin: 02/07/22 22:03 Dose: 100 mg
[2022-02-08] MEDS: DOCUSATE SODIUM/SENNA 50/8.6MG TAB PO SCH (19:30)
[2022-02-09] MEDS: POLYETHYLENE (MIRALAX) 17 GM PACK PO SCH (05:13)
[2022-02-09] MEDS: ASPIRIN 81 MG ECTAB PO SCH (07:27)
[2022-02-09] MEDS: ATENOLOL 50 MG TABLET PO SCH (07:28)
[2022-02-09] MEDS: ATORVASTATIN 40 MG TAB PO SCH (07:28)
[2022-02-09] MEDS: dexAMETHasone 6 MG in SYRINGE 0 ML IV SCH (07:29)
--- NOTE | 2022-02-09 09:11 | Discharge Summary ---
Date of Service February 09, 2022 Admission HPI Per Admitting Provider This is a 66-year-old male who presents with chronic persistent back and leg pain. After failing course of nonoperative care is here for surgical invention. Principal Diagnosis Lumbar spinal stenosis with neurogenic claudication Discharge Data Allergies Allergy/AdvReac Type Severity Reaction Status Date / Time hydrocodone Allergy Mild Itchy Verified 02/06/22 06:37 Consultations 02/06/22 11:14 Consult Hospitalist Routine Procedures Performed Operation Date: 02/06/22 07:45 Actual Procedures p L4-S1 Decompression and Fusion, Spinal Cord Monitoring(Not Applicable) - Tripp Vargas DO Ordered Studies 02/06/22 07:45 FL lumbar spine 2-3V Routine Hospital Course (1) Neurogenic claudication due to lumbar spinal stenosis: Patient 1 lumbar decompression fusion tolerated this well second orthopedic for postoperative. Postop day 1 he was up and ambulating progressed postop day #2 and 3 TAWANNA drain decreased probably. Excellent strength testing. Subsequent discharge home. Discharge orders and instructions were on the chart for further review. Total Time Total Time Spent Total Time Spent (In Minutes): 20 minutes Discharge Plan Discharge Items Patient Disposition: Home - Self-Care Reason For Visit: Spinal Stenosism Lumbar Region with Neurogenic Cla Discharge Diagnosis: Lumbar spinal stenosis with neurogenic claudication Activity: As commented below Non-emergency contact: Primary Care Provider Call non-emergency contact if: you have any medication questions Follow-up/Referrals: Tripp Vargas DO [Surgeon] - Simone Jarrett DO [Primary Care Provider] - Diet: Regular Addtl Attending Provider Instructions: ACTIVITY RECOMMENDATIONS: SELF CARE INSTRUCTIONS AFTER THORACIC/LUMBAR FUSIONS 1. You may walk to your tolerance. It is good exercise for your legs and back. Expect some back and intermittent leg aches and pains. 2. You may perform "counter-top" level activities (make a sandwich, devin with a project, etc.). 3. No bending or lifting of more than 10 pounds or back twisting of any nature (roll like a log when turning in bed). 4. You may ride in a car for 20-30 minutes at a time. No driving until after your first visit with your doctor. 5. Frequent changes of position and restricting sitting to 30 minutes at a time will help limit the amount of back spasms and stiffness you may experience. 6. You may discontinue the use of ambulatory aids (cane, crutches, etc.) once your strength and confidence allow. 7. You may icing mixer the shower and let water strike your incision when you arrive home at least once daily. Do not take a tub bath, sit in a hot tub or go into a swimming pool until after your first recheck in the office. SPECIAL CARE INSTRUCTIONS: VERY IMPORTANT TO READ AND REVIEW A. Your surgical incision has been closed with a cosmetic suture under the skin that will dissolve in about 6 weeks. In 14 days, you can use a pair of clean scissors and cut the suture that is left outside of the skin at the ends of your incision. 1. The small skin tapes can be removed 7 days after surgery if they have not fallen off by that point. 2. You may keep the wound open to air as much as possible to promote healing after post-op day number 5 unless told otherwise by your doctor. 3. If you think the wound looks like it is becoming infected (redness or worsening drainage) and/or you are experiencing fever, chill or worsening back pain and muscle spasms, contact the office so that we may evaluate you as soon as possible. B. Complications are uncommon, but please contact us if you have any signs or symptoms of: 1. wound infection (fever higher than 102.5 degrees F, redness, separation of wound, drainage, or increasing pain from the incision) 2. blood clots in legs (pain, swelling, redness and warmth in legs) 3. urinary tract infection (fever higher than 102.5 degrees F, burning upon urination or increased frequency of urination) 4. nerve problems (inability to walk on your toes or heels, numbness, loss of bowel or bladder control) 5. any other symptoms that concern you C. Please call the office at if you have any concerns or questions about your operation or recovery. D. No smoking! Smoking drastically decreases the chance of a solid fusion. E. Do not take any anti-inflammatory medications (Indocin, Advil, Motrin, Aspirin, Naprosyn, etc.) as these may inhibit the chance of a solid fusion. Tylenol is okay to take for pain. MANAGING PAIN AFTER SPINAL SURGERY 1. Narcotic medication is intended for short-term use and will be provided for surgical pain. Surgical pain usually lasts for a period of 4-6 weeks. Narcotic medication includes Percocet, Vicodin, Darvocet, Tylenol #3 or Lortab. 2. Longer-term pain is more appropriately treated with non-narcotic medication such as Tylenol ES. 3. Muscle spasm is not appropriately treated with narcotics. Muscle relaxers such as Soma, Flexeril or Skelaxin can be used along with Tylenol ES. 4. Remember that we all live with some "aches and pains". This is not unusual or uncommon after an injury or as we get older. a. Back pain is expected and may include muscle spasms for 4 to 6 weeks after surgery. The pain should gradually improve. If the pain worsens for no apparent reason, please contact the office. b. Intermittent leg pain may also be experienced and should not be concerned about unless it worsens for no apparent reason. If so, please contact the office. 5. We will provide appropriate medication within the normal guidelines of their prescribed use. We will also be very cautious and aware of potential abuse and extended duration of patients' medication needs. a. Pain medications are for your comfort and to assist with sleep and rest so that the tissue can heal. They are not provided in order to return to normal activity and should not be used through the day. To do so or worsening pain at night can result from ongoing tissue damage and development of tolerance to the prescribed medicine. 6. Please allow 2-3 days to process refills. Prescriptions will not be mailed but must be picked up at the office. FOLLOW UP VISIT: Keep your scheduled follow-up appointment. Any questions, please call the office at . Pending Studies at Discharge: No Stand-Alone Forms: [facility], Smoking Cessation Medications and DC Order Prescriptions: New tramadol 50 mg tablet 50 mg PO Q6H PRN (Reason: pain, moderate) Qty: 30 0RF acetaminophen-codeine 300-30 mg Tablet 1 tab PO Q4H PRN (Reason: pain) Qty: 30 0RF cyclobenzaprine 10 mg tablet 10 mg PO HS PRN (Reason: muscle spasm) Qty: 14 0RF Continued atorvastatin 40 mg Tablet 40 mg PO QAM lorazepam 1 mg Tablet 1 mg PO TID PRN (Reason: Anxiety) atenolol 50 mg Tablet 50 mg PO QAM aspirin 81 mg Capsule 81 mg PO QAM Discharge Orders: Discharge Order (Routine); Ordered 02/09/22 Ordered By: Tripp Vargas Admission Data Admit Date/Time: 02/06/22 09:50 Attending Provider: Tripp Vargas Admit Provider: Tripp Vargas Primary Care Provider: Simone Jarrett Other Providers: Ria Gaston ; Faisal Rodriguez
--- NOTE | 2022-02-09 17:17 | Hospitalist Progress Note ---
Date of Service February 09, 2022 Assessment & Plan (1) Neurogenic claudication due to lumbar spinal stenosis: (2) Hypertension: (3) Hyperlipidemia: (4) Anxiety: (5) Alcohol dependence: Plan This is a 66-year-old male who has significant past medical history of HTN, HLD, anxiety, BPH, history of colonic polyps lumbar spinal stenosis who presented for elective lumbar procedure by Dr. Vargas. Neurogenic claudication due to lumbar spinal stenosis- S/P L4-S1 lumbar decompression and fusion 02/06; further management per primary team HTN- Blood pressure stable, continue atenolol HLD- Continue atorvastatin Anxiety- prn lorazepam Alcohol use- no withdrawal S/S. Drinks 3-4 light beers daily, last drink 02/04 Nicotine dependence- chews tobacco pouches, Declines nicotine patch Dispo: Per Primary team. Stable for discharge from hospitalist perspective Admission and Anticipated Discharge Date Admission Date: February 06, 2022 Subjective Feels fine. States he is going home today no matter what. He has not been getting good sleep here. No other issues. Ambulating independently. Eating well. Had 2 BM yesterday. Voiding without issues. Physical Exam Physical Exam: General: Ambulating independently, not in distress, on room air HEENT: EOMI, ALEC, MMM Chest: Clear breath sounds bilaterally, no wheezes or crackles CVS: Regular rate and rhythm, normal heart sounds, no murmur Abdomen: Soft, non tender, not distended, normal bowel sounds Neuro: Awake, alert, oriented, conversing well, non focal Extremities: No cyanosis, clubbing or edema Back- incision site clean,dry intact, TAWANNA drain with slight serosanguineous output Results & Data Results & Data ([facility]) Vital Signs (Past 12 Hours) Vital Signs Temp Pulse Pulse Resp BP BP Pulse Ox 02/09/22 09:15 36.8 C 74 72 18 149/88 H 143/83 H 97 02/09/22 08:39 36.8 C 72 18 149/88 H 97 O2 Del Method 02/09/22 09:15 02/09/22 08:39 Room Air
== END 2022-02-09 10:46 | disposition home or self-care (01) | DRG 455 ==
LOC: ASU 06:04 → 3W 09:50